=== PATIENT | female | born 1990 | race African-American/Black ===

== ENCOUNTER 2019-12-12 15:14 | Emergency (ER) | payer MEDICAID ==
[~2019-12-12] VITALS: Ht 180.3 cm; Wt 111.0 kg
[2019-12-12] MEDS ORDERED: IBUPROFEN 600MG TABLET PO ONE (19:00)
[2019-12-12 19:02] VITALS: BP 155/82
== END 2019-12-12 19:49 | disposition home or self-care (01) ==
LOC: ER 15:14
DX: R07.89 Other chest pain (principal); Z88.5 Allergy status to narcotic agent; V43.52XA Car driver injured in collision with other type car in traffic accident, initial encounter; W22.11XA Striking against or struck by driver side automobile airbag, initial encounter; Y93.89 Activity, other specified; Y92.488 Other paved roadways as the place of occurrence of the external cause
CPT/HCPCS: 71045; 99283